=== PATIENT | male | born 1950 | race Two or more races ===

== ENCOUNTER 2020-11-05 11:00 | Inpatient (IN) | payer OTHER ==
[~2020-11-05] VITALS: Ht 162.6 cm; Wt 56.7 kg
[2020-11-05] MEDS ORDERED: GLIPIZIDE ER10 MG PO (15:01)
[2020-11-05] MEDS ORDERED: LOSARTAN-HCTZ1 EAC1 PO (15:02)
[2020-11-05] MEDS ORDERED: METFORMIN HCL1000 M2 PO (15:02)
[2020-11-05] MEDS ORDERED: LORAZEPAM0.5 MG PO (15:03)
[2020-11-05] MEDS ORDERED: HUMULIN 70100 UNIT/2 SUBCUTANEO (15:03)
[2020-11-05] MEDS ORDERED: EFFEXOR XR75 MG PO (15:03)
[2020-11-11] MEDS ORDERED: POTASSIUM CHLO20 MEQ (11:25)
[2020-11-11] MEDS ORDERED: ABATINEX680 MG (11:25)
[2020-11-11] MEDS ORDERED: TAMSULOSIN HCL0.4 MG (11:25)
== END 2020-11-13 17:22 | disposition home or self-care (01) | DRG 395 ==
LOC: O/R 11-11 08:23 → SURH 11-11 11:00 → SEC-K 11-11 18:05 → SURH 11-11 18:06
PROVIDERS: ADMIT Colon & Rectal Surgery; ATTEND Colon & Rectal Surgery
PROC: 0DBP8ZZ Excision of Rectum, Via Natural or Artificial Opening Endoscopic (ICD-10-PCS; principal; 2020-11-11 16:45)
DX: D12.8 Benign neoplasm of rectum (principal)

== ENCOUNTER 2021-01-14 10:00 | Inpatient (IN) | payer OTHER ==
[~2021-01-14] VITALS: Ht 162.6 cm; Wt 59.0 kg
[~2021-01-14 10:00] MED LIST: ABATINEX680 MG; EFFEXOR XR75 MG PO; GLIPIZIDE ER10 MG PO; HUMULIN 70100 UNIT/2 SUBCUTANEO; LORAZEPAM0.5 MG PO; LOSARTAN-HCTZ1 EAC1 PO; METFORMIN HCL1000 M2 PO; POTASSIUM CHLO20 MEQ; TAMSULOSIN HCL0.4 MG
[2021-01-14] MEDS ORDERED: HUMALOG100 UNIT/1 (12:06)
[2021-01-19] MEDS ORDERED: SIMVASTATIN40 MG (13:21)
[2021-01-19] MEDS ORDERED: HUMULIN N100 UNIT/2 (13:21)
== END 2021-01-29 19:56 | disposition home or self-care (01) | DRG 330 ==
LOC: SURH 01-19 07:00 → O/R 01-19 07:11 → SURG 01-19 07:11 → SURH 01-19 10:00 → SURG 01-20 08:44
PROVIDERS: ADMIT Colon & Rectal Surgery; ATTEND Colon & Rectal Surgery
PROC: 0DTN4ZZ Resection of Sigmoid Colon, Percutaneous Endoscopic Approach (ICD-10-PCS; 2021-01-19)
PROC: 0D1B4Z4 Bypass Ileum to Cutaneous, Percutaneous Endoscopic Approach (ICD-10-PCS; 2021-01-19)
PROC: 07BD4ZX Excision of Aortic Lymphatic, Percutaneous Endoscopic Approach, Diagnostic (ICD-10-PCS; 2021-01-19)
PROC: 07BC4ZX Excision of Pelvis Lymphatic, Percutaneous Endoscopic Approach, Diagnostic (ICD-10-PCS; 2021-01-19)
PROC: 3E0F7SF Introduction of Other Gas into Respiratory Tract, Via Natural or Artificial Opening (ICD-10-PCS; 2021-01-19)
PROC: 0DTP4ZZ Resection of Rectum, Percutaneous Endoscopic Approach (ICD-10-PCS; principal; 2021-01-19 07:00)
PROC: 05HY33Z Insertion of Infusion Device into Upper Vein, Percutaneous Approach (ICD-10-PCS; 2021-01-26)
DX: D12.8 Benign neoplasm of rectum (principal); K92.1 Melena; C20 Malignant neoplasm of rectum; K91.89 Other postprocedural complications and disorders of digestive system; K56.7 Ileus, unspecified; I10 Essential (primary) hypertension; Z20.822 Contact with and (suspected) exposure to COVID-19; Y83.8 Other surgical procedures as the cause of abnormal reaction of the patient, or of later complication, without mention of misadventure at the time of the procedure; Y92.230 Patient room in hospital as the place of occurrence of the external cause; E87.6 Hypokalemia

== ENCOUNTER 2021-02-12 16:55 | Emergency (ER) | payer OTHER ==
[~2021-02-12] VITALS: Ht 165.1 cm; Wt 59.0 kg
[~2021-02-12 16:55] MED LIST changes: +HUMALOG100 UNIT/1; +HUMULIN N100 UNIT/2; +SIMVASTATIN40 MG
== END 2021-02-12 21:30 | disposition home or self-care (01) ==
LOC: ER 16:55
DX: R10.31 Right lower quadrant pain (principal); K56.690 Other partial intestinal obstruction; E86.0 Dehydration; E87.8 Other disorders of electrolyte and fluid balance, not elsewhere classified

== ENCOUNTER 2021-08-04 07:25 | Outpatient (CLI) | payer OTHER | END 2021-08-04 07:32 | disposition home or self-care (01) | LOC: RX STUDY 07:25 | PROVIDERS: ATTEND Colon & Rectal Surgery | DX: D12.8 Benign neoplasm of rectum (principal) ==

== ENCOUNTER 2021-09-17 11:30 | Inpatient (IN) | payer OTHER ==
[~2021-09-17] VITALS: Ht 162.6 cm; Wt 61.2 kg
[2021-09-22] MEDS ORDERED: GABAPENTIN600 MG (08:13)
== END 2021-09-24 14:10 | disposition home or self-care (01) | DRG 348 ==
LOC: O/R 09-21 10:45 → SURG 09-21 10:45 → SURH 09-21 11:30 → SURG 09-21 17:50 → SURH 09-22 11:30 → SURG 09-24 14:10
PROVIDERS: ADMIT Colon & Rectal Surgery; ATTEND Colon & Rectal Surgery
PROC: 0DBB4ZZ Excision of Ileum, Percutaneous Endoscopic Approach (ICD-10-PCS; principal; 2021-09-21 15:15)
DX: Z43.2 Encounter for attention to ileostomy (principal); K92.1 Melena; K66.0 Peritoneal adhesions (postprocedural) (postinfection); D12.8 Benign neoplasm of rectum; Z86.010 Personal history of colon polyps; Z20.822 Contact with and (suspected) exposure to COVID-19; I10 Essential (primary) hypertension